=== PATIENT | female | born 1975 | race Caucasian/White ===

== ENCOUNTER 2025-04-01 13:26 | Outpatient (AMB) | payer BC, SELFPAY ==
[2025-04-01 13:39] VITALS: BP 116/83; PULSE 82; RESP 18; TEMP 36.2; O2SAT 97
--- NOTE | 2025-04-01 13:39 | GYNCLNT_ITS ---
Vital Signs 04/01/25 13:39 Weight 66.338 kg Weight Measurement Method Standing Scale BP 116/83 Blood Pressure Source Automatic Cuff Blood Pressure Location Left Upper Arm Position Sitting Respiration 18 Pulse 82 Pulse Source Monitor Temp 97.2 F Temp Source Oral Pulse Oximetry (%) 97 Oxygen Delivery Method Room Air Allergies/Home Meds Allergies & Medications Allergies acetaminophen Adverse Reaction (Intermediate, Verified 04/01/25 13:41) Nausea oxycodone Adverse Reaction (Intermediate, Verified 04/01/25 13:41) Nausea Medication Reconciliation No Known Home Medications 04/01/25 [History Confirmed 04/01/25] Intake Visit Data Collection New Patient or Established: New Patient (never been to [facility]) Reason for Visit:: ANNUAL EXAM Seen by Clinical Staff ONLY (RN/MA): No Director Stars Required: No Do You Feel Safe at Home: Yes Authorities Contacted: N/A PCP or OBGYN visit in last 3 months: No Hx Now: No Are you currently on any form of Control: No Pain Present Currently: No Pain Scale Used: Lora-Wu/Numerical Pain scale:: 0 Smoking Status Smoking Status: Never smoker 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 Monthly: No Age at menarche: 14 Menopausal: Yes Currently sexually active: Yes Additional comments: Pt had hyst/BSO as she is BRCA 2+ so she is in surgical menopause 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 Hysterectomy with BSO R and L shoulder surgery R knee surgery Cholecystectomy Other Relevant History: +BRCA 2 carrier. Followed at [facility]. Breast CA Pt Dad and brother are both BRCA 2+ Pt Dad has prostate CA Questionnaires Covid-19 Vaccine Questionnaire Has patient been vacinated for Covid-19 Have you been vacinated for Covid-19: Yes PHQ-9 PHQ-2 Over the last 2 weeks, how often have you been bothered by any of the following problems? 1. Little interest or pleasure in doing things: not at all 2. Feeling down, depressed, or hopeless: not at all Total score: 0 PHQ-9 3. Trouble falling or staying asleep, or sleeping too much: Not at all 4. Feeling tired or having little energy: Not at all 5. Poor appetite or overeating: Not at all 6. Feeling bad about yourself - or that you are a failure or have let yourself or your family down: Not at all 7. Trouble concentrating on things, such as reading the newspaper or watching television: Not at all 8. Moving or speaking so slowly that other people could have noticed? - Or the opposite - being so fidgety or restless that you have been moving around a lot more than usual: not at all 9. Thoughts that you would be better off or of hurting yourself in some way: Not at all Total score: 0 If you checked off any problems, how difficult have these problems made it for you to do your work, take care of things at home, or get along with other people?: not difficult at all Source: Developed by Drs. Marco A Allen, Penelope Mendoza, Harshad Das and colleagues, with an educational caridad from [employer]. Depression screen completed yes Social History Living Situation History Marital Status: Lives With: Family Housing: House Housing Other:: Dragan 16, Jessica 13. 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 She did not release her records ahead of time. She is BRCA2+ and already had breast CA. She has had B mastectomies and is followed at [facility]. She has had reconstruction. They already also performed a hysterectomy and BSO. She is on a low dose estrogen for menopausal syptoms through [facility]. They order yearly breast MRIs and she has had a BMD in 2022, a colonoscopy in 2020 and her primary care is checking labwork on her. She has no gynecological complaints today. Review of Systems Review of Systems Narrative Review of Systems: Hot flashes and vaginal dryness improved with estrogen replacement. No pelvic pain or incontinence. Exam General General Appearance: alert, in no apparent distress, comfortable, cooperative, healthy appearing and well groomed Neck Neck exam: Present normal inspection, full ROM and trachea midline Chest Chest inspection: Present normal inspection and symmetric chest wall rise Exp Chest Breast: bilateral: other (Scars from mastectomy. Implants in place) Resp Respiratory exam: Present normal lung sounds bilaterally Card Cardiovascular exam: Present regular rate, normal rhythm and normal heart sounds Abdominal Abdominal exam: Present soft and normal bowel sounds External exam: Present normal external exam Speculum exam: Present normal speculum exam and other (uterus and cervix surgically absent) Bimanual exam: Present normal bimanual exam (no uterus, cx or adnexa. Cuff intact. Non tender. No masses. No pelvic support defects) Psych Psychiatric exam: Present normal affect and normal mood Skin Skin exam: Present warm, dry, intact and normal color Office Procedures OB Clinic LOC & Office Proc's Nursing/Assessment Patient Status: Initial/New Patient OB Clinic Nursing Assessment: Medication Reconciliation, Update PMH in EMR and Vital Signs OB Clinic Coordination of Care: Education Complex Pt/Fam, Consent,records obtained, informed consent, Lab and Imaging orders and Staff clarify orders New Patient Charge New Patient Point Assignment: [id number] New Patient Point Charge: PUTTIER Level 3 ([id number]) In Clinic Procedures Pap Smear: Yes Assessment & Plan Diagnosis / Problem List (1) Encounter for Routine Gynecological Examination: Qualifiers: Gynecological examination findings: abnormal findings ABSENT Qualified Code(s): Z01.419 - Encounter for gynecological examination (general) (routine) without abnormal findings Assessment and Plan: Pap performed, breast exam done and encouraged. The patient will follow up at [facility] for her MRIs of the breast. (2) BRCA2 gene mutation positive in female: Status: Acute Assessment and Plan: S/p bilateral mastectomies and hysterectomy, BSO. Followed by [facility]. On Duavee and estradiol cream prescribed by her physician at [facility]. 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
== END 2025-04-01 14:28 | disposition home or self-care (01) ==
LOC: HODSOBC 13:26
PROVIDERS: PCP Internal Medicine; Referring Provider Internal Medicine; Supervising Provider Obstetrics & Gynecology; Visit Provider Obstetrics & Gynecology
DX: Z01.419 Encounter for gynecological examination (general) (routine) without abnormal findings (principal); Z11.51 Encounter for screening for human papillomavirus (HPV); Z15.01 Genetic susceptibility to malignant neoplasm of breast; Z15.02 Genetic susceptibility to malignant neoplasm of ovary; Z85.3 Personal history of malignant neoplasm of breast; Z90.13 Acquired absence of bilateral breasts and nipples; Z98.82 Breast implant status; Z90.710 Acquired absence of both cervix and uterus; Z90.722 Acquired absence of ovaries, bilateral; Z90.79 Acquired absence of other genital organ(s)
CPT/HCPCS: 99203; Q0091; G0463